=== PATIENT | female | born 1975 | race Caucasian/White ===

== ENCOUNTER → 2016-08-09 | Outpatient (CLI) | payer OTHER ==
--- NOTE | ~2016-08-09 | US98 ---
[facility] A Service of [facility] & [facility] RADIOLOGY TEXT RESULTS PATIENT: MILADIS CARDENAS LOCATION: [facility] : 73 UNIT #: [id number] AGE: [address]: SHANNAN COLLINS SEX: F ORDER DR: [id number] [facility] [address] [place], [place] [address] [id number] O MR#: [id number] Acc #: [id number] NAME: MILADIS CARDENAS : 1975 SEX: F STUDY DATE/TIME: 08/09/2016 10:53 UNIT: [facility] ROOM: STUDY DESCRIPTION: US Pelvic Non-OB Complete Attending Physician: Shannan Collins M.D. Referring Physician: Ant Trevino M.D. Ordering Physician: Shannan Collins M.D. Primary Care Physician: Angela Trevino M.D. MEDICAL IMAGING REPORT This report is preliminary unless electronic signature is present EXAM Transabdominal and transvaginal pelvic ultrasound. DATE 08/09/2016 HISTORY 41-year-old female with enlarged uterus, heavy menses, and pelvic pain per provided physician history. Patient states pain symptoms have been present for 1 1/2 weeks. Heavy bleeding cycle. G5, P5. COMPARISON None FINDINGS Transabdominal imaging was performed for generalized visualization of pelvic structures while transvaginal imaging was performed for more detailed evaluation of the adnexa. The uterus measures 5.5 x 5.2 x 6.2 cm. Endometrial bilayer thickness measures 9 mm, within normal limits. No focal myometrial lesion is identified. No fluid is demonstrated within the endometrial canal. The left ovary measures 1.5 x 4.5 x 3.5 cm and contains a complex cystic nodule measuring up to 2.1 x 2.0 x 2.3 cm. Benign left ovarian hemorrhagic cyst is favored. Right ovary measures 2.8 x 3.9 x 2.4 cm. It contains an eccentric cyst measuring about 1.7 cm. Both ovaries demonstrate normal color and spectral Doppler flow. Smaller right ovarian follicles are also present. IMPRESSION 1. Complex cystic lesion in the left ovary measures up to 2.3 cm. [facility] A Service of [facility] & [facility] RADIOLOGY TEXT RESULTS PATIENT: MILADIS CARDENAS LOCATION: [facility] : 73 UNIT #: [id number] AGE: [address]: SHANNAN COLLINS SEX: F ORDER DR: Benign hemorrhagic cyst is favored. Consider pelvic ultrasound followup in 6 weeks in a different phase of the patient's menstrual cycle. 2. Benign appearing cyst within the right ovary measures approximately 1.7 cm. 3. Normal flow is documented to each ovary. 4. Normal appearance of the uterine endometrium. Dictated by... Kaley Rai M.D. THIS IS AN ELECTRONICALLY VERIFIED REPORT Kaley Rai M.D. at 08/11/2016 7:14 AM DINESH/sabina TD: 08/09/2016 14:45 JOB #: [id number] MEDICAL IMAGING REPORT Page 1 of 1 COPY
== END | disposition home or self-care (01) ==
LOC: CWCC 10:40
DX: N85.2 Hypertrophy of uterus (principal); N92.0 Excessive and frequent menstruation with regular cycle; R10.2 Pelvic and perineal pain; N83.202 Unspecified ovarian cyst, left side; N83.201 Unspecified ovarian cyst, right side
CPT/HCPCS: 76830; 76856